=== PATIENT | male | born 1995 | race Caucasian/White ===

== ENCOUNTER 2019-08-11 14:36 | Emergency (ER) | payer OTHER, BC ==
[2019-08-11] MEDS ORDERED: Diphtheria,Pertussis(Acell),Tetanus Vaccine 0.5 ML Syringe IM ONE (14:51)
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
== END 2019-08-11 15:20 | disposition home or self-care (01) ==
LOC: VM.ED 14:36
DX: S01.81XA Laceration without foreign body of other part of head, initial encounter (principal); Z23 Encounter for immunization; W25.XXXA Contact with sharp glass, initial encounter
CPT/HCPCS: 12011; 90471; 90715; 99284

== ENCOUNTER 2020-10-21 16:35 | Emergency (ER) | payer OTHER, BC ==
--- NOTE | 2020-10-21 23:25 | EDM.PDOC ---
ED HPI GENERAL MEDICAL PROBLEM - General Chief Complaint: Laceration Stated Complaint: LACERATION TO LEG Time Seen by Provider: 10/21/20 16:55 Source of Information: Reports: Patient History Limitations: Reports: No Limitations - History of Present Illness INITIAL COMMENTS - FREE TEXT/NARRATIVE: Pt. sustained laceration to R anterior lower leg while moving a futon today. States that his tetanus is up to date. Denies any injury elsewhere. Denies any deep pain underlying the injury, and states that the discomfort is superficial in nature. Pt. states that the injury happened just prior to coming to ER. 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 [No Known Home Meds] 08/11/19 [History] Past Medical History - Past Health History Medical/Surgical History: Denies Medical/Surgical History Social & Family History - Tobacco Use Tobacco Use Status *Q: Former Tobacco User Used Tobacco, but Quit: Yes Month/Year Tobacco Last Used: 4 years ago - Recreational Drug Use Recreational Drug Use: No ED ROS GENERAL - Review of Systems Review Of Systems: Comprehensive ROS is negative, except as noted in HPI. ED EXAM, SKIN/RASH Exam: See Below Extremities: Other (approx. 5 cm superficial avulsion/laceration to R lower leg. There appears to be a strip of missing tissue from the area, but the laceration is very shallow and does not require suturing.) Neurological: Alert, Oriented, CN II-XII Intact, Normal Reflexes, No Motor/Sensory Deficits ED SKIN PROCEDURES - Laceration/Wound Repair Right Leg Appearance: Superficial Distal NVT: Neuro & Vascular Intact Skin Prep: Chlorhexidine (Hibiciens), Saline Exploration/Debridement/Repair: Wound Explored Closed with: Dermabond Lac/Wound length In cm: 5 Course - Vital Signs Last Recorded V/S: Last Vital Signs Temp 37.1 C 10/21/20 16:40 Pulse 81 10/21/20 16:40 Resp 13 10/21/20 16:40 BP 133/80 10/21/20 16:40 Pulse Ox 99 10/21/20 16:40 Departure - Departure Time of Disposition: 17:15 Disposition: Home, Self-Care 01 Clinical Impression: Laceration - Discharge Information Instructions: Laceration Care, Adult Referrals: Son Pinon NP [Primary Care Provider] - Forms: ED Department Discharge Additional Instructions: Keep dry for 24 hours. The adhesive will gradually slough off of the laceration. Return if redness, swelling, or discharge from the area. Sepsis Event Note (ED) - Evaluation Sepsis Screening Result: No Definite Risk - Focused Exam Vital Signs: Vital Signs Temp Pulse Resp BP Pulse Ox 10/21/20 16:40 37.1 C 81 13 133/80 99 - Problem List Review Problem List Initiated/Reviewed/Updated: Yes - Assessment/Plan Plan: Keep dry for 24 hours. The adhesive will gradually slough off of the laceration. Return if redness, swelling, or discharge from the area.
== END 2020-10-21 17:03 | disposition home or self-care (01) ==
LOC: VM.ED 16:35
DX: S81.811A Laceration without foreign body, right lower leg, initial encounter (principal); Z88.0 Allergy status to penicillin; Z87.891 Personal history of nicotine dependence; W26.8XXA Contact with other sharp object(s), not elsewhere classified, initial encounter
CPT/HCPCS: 12002; 99282-25; 99283

== ENCOUNTER 2021-12-17 00:10 | Emergency (ER) | payer OTHER | END 2021-12-17 01:18 | disposition home or self-care (01) | LOC: VM.ED 00:10 | DX: S60.132A Contusion of left middle finger with damage to nail, initial encounter (principal); Z88.0 Allergy status to penicillin; W23.0XXA Caught, crushed, jammed, or pinched between moving objects, initial encounter; Y99.0 Civilian activity done for income or pay | CPT/HCPCS: 11740; 73140-F2; 99283-25 ==

== ENCOUNTER 2022-01-20 20:42 | Emergency (ER) | payer OTHER ==
[2022-01-20] MEDS ORDERED: Ketorolac 30 MG/ML SDV IM ONE (21:06)
[2022-01-20] MEDS ORDERED: Sodium Chloride 0.9% 10 ML Syringe FLUSH PRN (22:15)
[2022-01-20 22:56] LABS: PTT,PARTIAL THROMBOPLSTIN TIME 26.3 SEC (20.5-30.9)
[2022-01-20] MEDS ORDERED: Iopamidol 612 MG/ML 100 ML Bottle IVPUSH ONE (22:57)
[2022-01-20 22:58] LABS: ANION GAP 12.9 mmol/L (5-15); CHLORIDE,CL 106 mmol/L (98-107); SODIUM,NA 140 mmol/L (136-145)
[2022-01-20] MEDS ORDERED: Take Home: Acetaminophen/HYDROcodone 325-5 MG, 5 Tab Pack PO ONE (23:39)
== END 2022-01-21 00:26 | disposition home or self-care (01) ==
LOC: VM.ED 20:42
DX: S20.212A Contusion of left front wall of thorax, initial encounter (principal); Z88.0 Allergy status to penicillin; Z72.0 Tobacco use
CPT/HCPCS: 71046; 71100-LT; 71260; 74177; 80053; 85025; 85610; 85730; 96372; 99284; 99285-25; J1885; Q9967

== ENCOUNTER 2023-03-11 21:43 | Emergency (ER) | payer OTHER | END 2023-03-11 22:30 | disposition home or self-care (01) | LOC: VM.ED 21:43 | DX: S00.83XA Contusion of other part of head, initial encounter (principal); Z88.0 Allergy status to penicillin; W22.09XA Striking against other stationary object, initial encounter | CPT/HCPCS: 99283 ==